=== PATIENT | female | born 1990 | race Caucasian/White ===

== ENCOUNTER 2019-12-04 18:25 | Inpatient (IN) | payer BC, OTHER ==
[2019-12-04] MEDS: DEXTROSE 5%-LACTATED RINGERS 1,000 ML IV SCH (20:30)
[2019-12-04 20:33] LABS: BASO % 0.2 % (0-2.0); EOS % 0.3 % (0-4.5); HEMATOCRIT 35.1 % (32.4-45.2); HEMOGLOBIN 11.6 GM/dL (10.7-15.3); LYMPH % 17.3 % (8-40); MCHC 33.2 g/dl (32.0-36.0); MEAN CELL VOLUME 93.5 fl (80-96); MEAN PLT VOLUME 8.9 fl (7.5-11.1); MONO % 6.3 % (3.8-10.2); NEUT % 75.9 % (42.8-82.8); PLATELET COUNT 239 K/MM3 (134-434); RBC 3.76 M/mm3 (3.60-5.2); RDW 13.2 % (11.6-15.6); WHITE BLOOD COUNT 12.8 K/mm3 (4.0-10.0)
[2019-12-04 20:42] LABS: INR 0.93 (0.83-1.09)
[2019-12-04 20:44] LABS: ACTIVATED PTT 25.2 SECONDS (25.2-36.5)
[2019-12-04 20:59] LABS: BLOOD UREA NITROGEN 11.6 mg/dL (7-18); CALCIUM 9.5 mg/dL (8.5-10.1); CREATININE 0.6 mg/dL (0.55-1.3)
[2019-12-04] MEDS ORDERED: DINOPROSTONE 10 MG VAGINAL SUPPOSITORY VG ONE (21:00)
[2019-12-04 21:41] VITALS: BMI 30.9
--- NOTE | 2019-12-04 22:45 | HP ---
Past Medical History - Primary Care Physician PCP:: Surendra Sorenson - Admission Chief Complaint: 29yo P0 with at EGA 40w1d admitted for labor indx due to post term . History of Present Illness: Post term Vaginal GBS (+) h/o PCOS History Source: Patient, Medical Record Limitations to Obtaining History: No Limitations - Past Medical History S[employer]IOR [employer] APPLICATIONS DEVELOPER: No: Alzheimer's, CVA, Dementia, Migraine, Multiple Sclerosis, Peripheral Neuropathy, Parkinson's, Seizure, Syncope, TIA, Vertigo, Other Cardiovascular: No: AFIB, Aneurysm, Aortic Insufficiency, Aortic Stenosis, CAD, CHF, Deep Vein Thrombosis, HTN, Hyperlipdemia, MO, Mitral Insufficiency, Mitral Stenosis, Murmur, Pulmonary Hypertension, Other Pulmonary: No: Asthma, Bronchitis, Cancer, COPD, O2 Dependent, Pneumonia, Previously Intubated, Pulmonary Embolus, Pulmonary Fibrosis, Sleep Apnea, Other Gastrointestinal: No: Ascites, Cancer, Constipation, Crohn's Disease, Diverticulitis, Diverticulosis, Esophageal Varices, Gastritis, GERD, GI Bleed, Hemorrhoids, Hiatal Hernia, Inflamatory Bowel Disease, Irritable Bowel Disease, Pancreatitis, Peptic Ulcer Disease, Ulcerative Colitis, Other Hepatobiliary: No: Cirrhosis, Cholelithiasis, Cholecystitis, Choledocholithiasis, Hepatitis A, Hepatitis B, Hepatitis C, Other Renal/: No: Renal Failure, Renal Inusuff, BPH, Cancer, Hematuria, Hemodialysis, Neurogenic Bladder, Renal Calculi, UTI, Other Reproductive: Yes: Polycystic Ovary Syndrome ...: 1 ...Para: 0 ...Term: 0 ...: 0 ...Spon : 0 ...Induced : 0 ...Living Children: 0 ...Multiple Gestation: 0 ...LMP: 02/22/19 ... Weeks Gestation by Dates: 40.4 ...EDC by Dates: 11/30/19 ...EDC by Sono: 12/03/19 Heme/Onc: No: Anemia, B12 Deficiency, Bleeding Disorder, Cancer, Current Chemotherapy, Current Radiation Therapy, Hemochromatosis, Hypercoaguable State, Myeloproliferative Synd, Sickle Cell Disease, Sickle Cell Trait, Thrombocytopenia, Other Infectious Disease: No: AIDS, C-Diff, Herpes Zoster, HIV, MRSA, STD's, Tuberculosis, VREF, Other Psych: No: Addictions, Anxiety, Bipolar, Depression, Panic, Psychosis, Schizophrenia, Other Musculoskeletal: No: Bursitis, Chronic low back pain, Hemiparesis, Hemiplegia, O steoarthritis, Paraplegia, Other Rheumatology: No: Fibromyalgia, Gout, Lupus, Rheumatoid Arthritis, Sarcoidosis, Vasculitis, Other ENT: No: Allergic Rhinitis, Sinusitis, Other Endocrine: No: Ankit's Disease, [place]'s Disease, Diabetes Insipidus, Diabetes Mellitus, Hyperparathyroidism, Hyperthyroidism, Hypothyroidism, Ost eopenia, SIADH, Other Dermatology: No: Basal Cell, Cellulitis, Eczema, Melanoma, Psoriasis, Squamous Cell, Other - Past Surgical History Past Surgical History: Yes: Appendectomy Hx Myomectomy: No Hx Transabdominal Cerclage: No - Smoking History Smoking history: Never smoked Have you smoked in the past 12 months: No - Alcohol/Substance Use Hx Alcohol Use: No History of Substance Use: reports: None - Social History Usual Living Arrangement: Yes: With Spouse Do you think of yourself as: Straight/Heterosexual ADL: Independent Occupation: Teacher History of Recent Travel: No Home Medications - Allergies Allergies/Adverse Reactions: Allergies Allergy/AdvReac Type Severity Reaction Status Date / Time No Known Allergies Allergy Verified 12/04/19 19:54 - Home Medications Home Medications: Ambulatory Orders Vitamins (Sjr) - 1 tab PO DAILY 12/04/19 Family Medical History Family Hx Cardiac Disorders: Mother (HTN) Review of Systems - Review of Systems Constitutional: reports: No Symptoms Eyes: reports: No Symptoms HENT: reports: No Symptoms Neck: reports: No Symptoms Cardiovascular: reports: No Symptoms Respiratory: reports: No Symptoms Gastrointestinal: reports: No Symptoms Genitourinary: reports: No Symptoms Breasts: reports: No Symptoms Reported Musculoskeletal: reports: No Symptoms Integumentary: reports: No Symptoms Neurological: reports: No Symptoms Endocrine: reports: No Symptoms Hematology/Lymphatic: reports: No Symptoms Psychiatric: reports: No Symptoms Pain Intensity: 0 Physical Exam - Maternity Vital Signs: Vital Signs Temperature 98.2 F 12/04/19 22:00 Pulse Rate 70 12/04/19 22:00 Respiratory Rate 18 12/04/19 22:00 Blood Pressure 130/68 12/04/19 22:00 O2 Sat by Pulse Oximetry (%) Constitutional: Yes: Well Nourished, No Distress, Calm Eyes: Yes: WNL, Conjunctiva Clear, EOM Intact HENT: Yes: WNL, Atraumatic, Normocephalic Neck: Yes: WNL, Supple, Trachea Midline Cardiovascular: Yes: WNL, Regular Rate and Rhythm Lungs: Clear to auscultation, Normal air movement - Abdominal Exam/OB Fundal Height: 41 Number of Fetuses: Single Presentation: Vertex Contractions: Yes Regularity: Irritability Intensity: Unaware Monitor Mode: External Heart Rate (range): 140 Heart Rate Location: Midline Category: I Accelerations: Non-Uniform Decelerations: None - Vaginal Exam/OB Vaginal Bleeding: No Speculum Exam: No Dilatation (cm): 2 Effacement (%): 50 Amniotic Membrane Status: Intact Presentation: Vertex/Position Station: -3 - Physical Exam Musculoskeletal: Yes: WNL Extremities: Yes: WNL Edema: No Integumentary: Yes: WNL Deep Tendon Reflex Grade: Normal +2 ...Motor Strength: WNL Psychiatric: Yes: WNL, Alert, Oriented - Labs Lab Results: CBC, BMP 12/04/19 20:10 12/04/19 20:10 Hemorrhage Risk Assessment - Risk Factors Medium Risk Factors: Yes: None High Risk Factors: Yes: None Risk Score: 1 Risk Level: Medium Risk Imaging - Results Ultrasound: Report Reviewed Assessment/Plan 29yo P0 with at EGA 40w1d admitted for labor indx due to post term . Pt is not in labor. Fetus with Category I tracing. Adequate gynecoid pelvimetry on exam. We had long discussion re: risks, benefits, and alternatives of labor induction. I explained the options of expectant management awaiting spontaneous labor, induction of labor, and elective section. The risks of uterine tachysystole, distress, uterine rupture, need for emergency C/S, hemorrhage, infection, scarring, etc. were discussed. We also discussed the risks of meconium aspiration, shoulder dystocia, and anesthesia options. The pt requested to proceed with induction. We discussed the alternative methods of induction with Cervidil, Cytotec, Folley ballon, and pitocin. The pt prefers Cervidil followed by pitocin, if needed.
[2019-12-05] MEDS: DEXTROSE 5%-LACTATED RINGERS 1,000 ML IV SCH ×2 (01:30→09:25)
[2019-12-05] MEDS ORDERED: OXYTOCIN 30 UNITS in 0.9% NS 30 UNIT/500 ML INFUS.BAG IVPB ONE (08:08)
[2019-12-05] MEDS ORDERED: AMPICILLIN SODIUM 2 GM VIAL ONE (08:44)
[2019-12-05] MEDS ORDERED: SODIUM CHLORIDE 100 ML IVPB ONE ×2 (08:44→12:15)
--- NOTE | 2019-12-05 08:50 | PN ---
Ante-Partal Exam - Subjective Subjective: Pt is c/o leaking fluid. SROM at 8:35am with clear fluid. Vital Signs: Vital Signs Temperature 98.9 F 12/05/19 06:00 Pulse Rate 87 12/05/19 07:00 Respiratory Rate 20 12/05/19 07:00 Blood Pressure 125/75 12/05/19 07:00 O2 Sat by Pulse Oximetry (%) Bleeding: No Headache: No Visual changes: No Right upper quadrant pain: No Pain (scale 1-10): 4 - Contractions Contractions: Yes Regularity: Irregular Intensity: Mild Monitor Mode: External - Exam during Labor Heart Rate: 135 Variability: Moderate Heart Rate Location: Midline Category: I Monitor Accelerations: Present Monitor Decelerations: None Exam: Vaginal Dilatation (cm): 2 Effacement (%): 70 Amniotic Membrane Status: Leaking Nitrazine Test: Positive Amniotic Fluid: Clear Presentation: Vertex Station: -3 Remarks: Gynecoid pelvimetry - Intrapartum Hemorrhage Risk Medium Risk Factors: None High Risk Factors: None Risk Score: 0 Risk Level: Low Risk - Assessment/Plan Assessment/Plan: Pt is in latent labor. Contractions are irregular. Fetus with Category I tracing. Plan to augment contractions with pitocin. Plan of care was d/w pt.
[2019-12-05] MEDS ORDERED: AMPICILLIN - 2 GM in SODIUM CHLORIDE 100 ML IVPB ONE (08:51)
[2019-12-05] MEDS ORDERED: OXYTOCIN 30 UNITS in 0.9% NS 30 UNIT/500 ML INFUS.BAG IVPB SCH (09:00)
[2019-12-05] MEDS ORDERED: BUTORPHANOL TARTRATE 1 MG/ML VIAL IVPB ONE (09:05)
[2019-12-05] MEDS ORDERED: BUTORPHANOL TARTRATE 2 MG/ML VIAL ONE (09:05)
[2019-12-05] MEDS ORDERED: PROMETHAZINE HCL 25 MG/1 ML VIAL IVPB ONE (09:05)
[2019-12-05] MEDS ORDERED: PROMETHAZINE HCL 25 MG/1 ML VIAL ONE (09:05)
[2019-12-05] MEDS: ELECTROLYTE-148 SOLN 1,000 ML IV SCH ×2 (11:05→12:19)
[2019-12-05] MEDS ORDERED: FENTANYL/BUPIVACAINE/NS/PF - PCEA - 50 ML DISP.SYRIN EP ONE (11:07)
[2019-12-05] MEDS ORDERED: PCA PUMP NR ONE (11:07)
[2019-12-05] MEDS ORDERED: FENTANYL/BUPIVACAINE/NS/PF - PCEA - 50 ML DISP.SYRIN EP SCH (11:15)
[2019-12-05] MEDS ORDERED: NALOXONE HCL 0.4 MG/ML VIAL IVPUSH PRN (11:15)
[2019-12-05] MEDS ORDERED: BUPIVACAINE HCL/PF 0.25% (2.5MG/ML) 10 ML VIAL ONE (11:18)
[2019-12-05] MEDS ORDERED: AMPICILLIN SODIUM 1 GM VIAL ONE (12:15)
[2019-12-05] MEDS: AMPICILLIN - 1 GM in SODIUM CHLORIDE 100 ML IVPB SCH ×2 (12:38→23:13)
--- NOTE | 2019-12-05 14:21 | PN ---
Ante-Partal Exam - Subjective Subjective: No complaints, s/p epidural anesthesia Vital Signs: Vital Signs Temperature 97.9 F 12/05/19 14:00 Pulse Rate 69 12/05/19 14:00 Respiratory Rate 20 12/05/19 14:00 Blood Pressure 116/80 12/05/19 14:00 O2 Sat by Pulse Oximetry (%) 100 12/05/19 14:00 Bleeding: No Headache: No Visual changes: No Right upper quadrant pain: No Pain (scale 1-10): 0 - Contractions Contractions: Yes Regularity: Regular Intensity: Mod/Strong Monitor Mode: External - Exam during Labor Heart Rate: 135 Variability: Moderate Heart Rate Location: Midline Category: I Monitor Accelerations: Present Monitor Decelerations: Early Exam: Vaginal Dilatation (cm): 8 Effacement (%): 90 Amniotic Membrane Status: Leaking Amniotic Fluid: Clear Presentation: Vertex Station: 0 - Intrapartum Hemorrhage Risk Medium Risk Factors: None High Risk Factors: None Risk Score: 0 Risk Level: Low Risk - Assessment/Plan Assessment/Plan: Progressed in active labor. Fetus with Category I tracing and does not need intervention Plan to monitor labor. Anticipate .
[2019-12-05] MEDS ORDERED: OXYTOCIN 20 UNITS in 0.9% NS 20 UNIT/1,000 ML INFUS.BAG IV ONE (16:17)
[2019-12-05] MEDS ORDERED: LIDOCAINE HCL 1% PRESERVATIVE FREE - 30ML VIAL ONE (16:48)
[2019-12-05] MEDS ORDERED: BISACODYL 10 MG SUPP.RECT RC PRN (17:15)
[2019-12-05] MEDS ORDERED: BENZOCAINE 28 GM HEMORRHOIDAL OINTMENT TP PRN (17:15)
[2019-12-05] MEDS ORDERED: BENZOCAINE 20% 57 GM BOTTLE TP PRN (17:15)
[2019-12-05] MEDS ORDERED: OXYTOCIN 20 UNITS in 0.9% NS 20 UNIT/1,000 ML INFUS.BAG IV SCH ×2 (17:15→18:30)
[2019-12-05] MEDS ORDERED: WITCH HAZEL 50% (TUCKS) 40 PAD/JAR PAD TP PRN (17:15)
[2019-12-05] MEDS ORDERED: METHYLERGONOVINE MALEATE 0.2 MG/1 ML AMP IM PRN (17:15)
[2019-12-05] MEDS ORDERED: IBUPROFEN 600 MG TABLET (FP) PO ONE (17:24)
[2019-12-05] MEDS: IBUPROFEN 600 MG TABLET (FP) PO PRN (17:30)
--- NOTE | 2019-12-06 00:05 | PN ---
Post Progress Note - Subjective Subjective: Patient without acute complaints. Reports tolerating oral intake without nausea or vomiting. Ambulating without dizziness. Denies fevers or chills. Pain well controlled with oral pain medication. without difficulty. Passing flatus. Post Day: 1 Type of Delivery: Vital Signs: Vital Signs Temperature 98.6 F 12/05/19 19:50 Pulse Rate 76 12/05/19 19:50 Respiratory Rate 18 12/05/19 19:50 Blood Pressure 130/71 12/05/19 19:50 O2 Sat by Pulse Oximetry (%) 99 12/05/19 18:15 Breast Exam: Yes: Soft Uterus: Yes: Fundus Firm Abdomen/GI: Yes: Abdomen soft, Passing flatus, Tolerating PO. No: Abdominal Distention, Tender Lochia: Yes: Rubra Lochia, amount: Moderate Extremities: Yes: Calves non-tender. No: Edema Perineum: Yes: Laceration Activity: Ambulating - Labs Labs: CBC WBC 12.8 K/mm3 (4.0-10.0) H 12/04/19 20:10 RBC 3.76 M/mm3 (3.60-5.2) 12/04/19 20:10 Hgb 11.6 GM/dL (10.7-15.3) 12/04/19 20:10 Hct 35.1 % (32.4-45.2) 12/04/19 20:10 MCV 93.5 fl (80-96) 12/04/19 20:10 MCH 31.0 pg (25.7-33.7) 12/04/19 20:10 MCHC 33.2 g/dl (32.0-36.0) 12/04/19 20:10 RDW 13.2 % (11.6-15.6) 12/04/19 20:10 Plt Count 239 K/MM3 (134-434) 12/04/19 20:10 MPV 8.9 fl (7.5-11.1) 12/04/19 20:10 Absolute Neuts (auto) 9.7 K/mm3 (1.5-8.0) H 12/04/19 20:10 Neutrophils % 75.9 % (42.8-82.8) 12/04/19 20:10 Lymphocytes % 17.3 % (8-40) 12/04/19 20:10 Monocytes % 6.3 % (3.8-10.2) 12/04/19 20:10 Eosinophils % 0.3 % (0-4.5) 12/04/19 20:10 Basophils % 0.2 % (0-2.0) 12/04/19 20:10 Nucleated RBC % 0 % (0-0) 12/04/19 20:10 Assessment/Plan 29 yo PPD # 1 s/p , afebrile, vital signs stable, doing well 1. Continue routine care. 2. AM CBC with mild anemia 3. Rh positive status, no rhogam indicated. 4. Encourage ambulation 5. Continue oral pain medication 6. Anticipate discharge home day #2
[2019-12-06] MEDS: ACETAMINOPHEN 325 MG TABLET (FP) PO PRN ×2 (05:46→20:13)
[2019-12-06] MEDS: IBUPROFEN 600 MG TABLET (FP) PO PRN ×2 (05:47→20:14)
[2019-12-06 08:39] LABS: BASO % 0.2 % (0-2.0); EOS % 0.3 % (0-4.5); HEMATOCRIT 29.8 % (32.4-45.2); HEMOGLOBIN 9.9 GM/dL (10.7-15.3); LYMPH % 12.3 % (8-40); MCH 31.2 pg (25.7-33.7); MCHC 33.2 g/dl (32.0-36.0); MEAN CELL VOLUME 93.8 fl (80-96); MEAN PLT VOLUME 8.6 fl (7.5-11.1); MONO % 6.6 % (3.8-10.2); NEUT % 80.6 % (42.8-82.8); PLATELET COUNT 210 K/MM3 (134-434); RBC 3.17 M/mm3 (3.60-5.2); RDW 12.9 % (11.6-15.6); WHITE BLOOD COUNT 15.1 K/mm3 (4.0-10.0)
[2019-12-06] MEDS: PRENATAL VITAMINS W/ FOLIC ACID TABLET (FP) PO SCH (11:09)
[2019-12-06] MEDS ORDERED: SENNOSIDES/DOCUSATE COMBO (SENNA PLUS) TABLET (UD) PO PRN (22:00)
--- NOTE | 2019-12-07 07:31 | DS ---
Physical Exam-CASH MANAGEMENT ASSOCIATE Vital Signs: Vital Signs Temperature 98.3 F 12/06/19 22:00 Pulse Rate 87 12/06/19 22:00 Respiratory Rate 18 12/06/19 22:00 Blood Pressure 125/74 12/06/19 22:00 O2 Sat by Pulse Oximetry (%) 99 12/05/19 18:15 Constitutional: Yes: Well Nourished, No Distress, Calm Eyes: Yes: WNL, Conjunctiva Clear, EOM Intact HENT: Yes: WNL, Atraumatic, Normocephalic Neck: Yes: WNL, Supple, Trachea Midline Cardiovascular: Yes: WNL, Regular Rate and Rhythm Respiratory: Yes: WNL, Regular, CTA Bilaterally Gastrointestinal: Yes: WNL ...Rectal Exam: Yes: WNL Renal/: Yes: WNL ....Post : Yes: Uterus firm, Uterus non-tender, Slight lochia rubra Breast(s): Yes: WNL Musculoskeletal: Yes: WNL Extremities: Yes: WNL Edema: No Integumentary: Yes: WNL Neurological: Yes: WNL, Alert, Oriented ...Motor Strength: WNL Psychiatric: Yes: WNL, Alert, Oriented Labs: CBC, BMP 12/06/19 07:49 12/04/19 20:10 Delivery - Delivery Vaginal Delivery: Spontaneous Type of Anesthesia: Local, Epidural Episiotomy/Laceration: 1st degree EBL (cc): 350 Delivery, Single - Stages of Labor Date 1st Stage Initiatied: 12/05/19 Time 1st Stage Initiated: 08:00 Date 2nd Stage Initiated: 12/05/19 Time 2nd Stage Initiated: 15:45 Date of Delivery: 12/05/19 Time of Delivery: 16:54 Time Placenta Delivered: 17:00 Placenta: Yes: Spontaneous - Condition of Infant Facilities Maintenance Technician/Score Caller Present: No Infant Gender: Male Weight: 7 lb 4 oz Total Hours ROM (Hrs/Mins): 8/25 - 1 Minute Total Score: 9 5 Minutes Total Score: 10 - Brule Feeding Plan Initial Plan: Elected not to breastfeed exclusively throughout hospitalization Discharge Summary Problems reviewed: Yes Reason For Visit: INDUCTION Procedures: Principal: Hospital Course: follow up office 4 weeks Condition: Good - Instructions Diet, Activity, Other Instructions: regular diet, no intercourse, follow up office 4 weeks, if fever, heavy vaginal bleeding, pain call MD Referrals: Surendra Sorenson MD [Staff Physician] - Disposition: HOME - Home Medications Comprehensive Discharge Medication List: Ambulatory Orders Vitamins (Sjr) - 1 tab PO DAILY 12/04/19 Ibuprofen [Motrin -] 600 mg PO QID #28 tablet 12/06/19
[2019-12-07] MEDS: PRENATAL VITAMINS W/ FOLIC ACID TABLET (FP) PO SCH (09:28)
[2019-12-07 14:06] VITALS: BP 118/80; PULSE 80; TEMP 98
== END 2019-12-07 12:10 | disposition home or self-care (01) | DRG 807 ==
LOC: JLDR 18:25 → J3W 12-05 19:47
PROVIDERS: ADMIT Obstetrics & Gynecology; ATTEND Obstetrics & Gynecology
PROC: 3E0P7VZ Introduction of Hormone into Female Reproductive, Via Natural or Artificial Opening (ICD-10-PCS; 2019-12-04)
PROC: 10E0XZZ Delivery of Products of Conception, External Approach (ICD-10-PCS; principal; 2019-12-05)
PROC: 0HQ9XZZ Repair Perineum Skin, External Approach (ICD-10-PCS; 2019-12-05)
PROC: 0W8NXZZ Division of Female Perineum, External Approach (ICD-10-PCS; 2019-12-05)
DX: O70.0 First degree perineal laceration during delivery (principal); Z37.0 Single live birth; O48.0 Post-term pregnancy; O99.013 Anemia complicating pregnancy, third trimester; Z22.330 Carrier of Group B streptococcus; Z3A.40 40 weeks gestation of pregnancy
CPT/HCPCS: 36415; 59409; 80048; 85025; 85610; 85730; 86780; 86850; 86900; 86901; 87389; U0003

== ENCOUNTER 2022-07-03 10:40 | Inpatient (IN) | payer BC, OTHER ==
[2022-07-03] MEDS ORDERED: ELECTROLYTE-148 SOLN 1,000 ML IV SCH (11:30)
[2022-07-03] MEDS ORDERED: FENTANYL CITRATE/PF 50 MCG/ML VIAL ONE ×2 (11:50→16:48)
[2022-07-03] MEDS ORDERED: BUPIVACAINE HCL/PF 0.25% (2.5MG/ML) 10 ML VIAL ONE ×2 (11:50→16:48)
[2022-07-03] MEDS ORDERED: FENTANYL/BUPIVACAINE/NS/PF - PCEA - 50 ML DISP.SYRIN EP ONE ×2 (11:57→16:44)
[2022-07-03] MEDS ORDERED: AMPICILLIN - 2 GM in SODIUM CHLORIDE 100 ML IVPB ONE (12:00)
[2022-07-03] MEDS ORDERED: AMPICILLIN SODIUM 2 GM VIAL ONE (12:34)
[2022-07-03 12:40] LABS: BASO % 0.1 % (0-2.0); EOS % 0.2 % (0-4.5); HEMATOCRIT 35.7 % (32.4-45.2); HEMOGLOBIN 11.9 GM/dL (10.7-15.3); MCH 30.7 pg (25.7-33.7); MCHC 33.2 g/dl (32.0-36.0); MEAN CELL VOLUME 92.3 fl (80-96); MEAN PLT VOLUME 8.9 fl (7.5-11.1); MONO % 4.7 % (3.8-10.2); PLATELET COUNT 253 10^3/uL (134-434); RBC 3.87 M/mm3 (3.60-5.2)
[2022-07-03 12:41] LABS: INR 1.01 (0.83-1.09); PROTHROMBIN TIME (PATIENT) 11.7 SEC (9.7-13.0)
[2022-07-03 12:44] LABS: ACTIVATED PTT 27.6 SECONDS (25.2-36.5)
[2022-07-03 13:01] LABS: CALCIUM 8.6 mg/dL (8.5-10.1)
[2022-07-03 13:02] LABS: BLOOD UREA NITROGEN 9.9 mg/dL (7-18)
[2022-07-03 13:06] LABS: CREATININE 0.6 mg/dL (0.55-1.3)
[2022-07-03] MEDS ORDERED: NALOXONE HCL 0.4 MG/ML VIAL IVPUSH PRN (13:20)
[2022-07-03] MEDS ORDERED: FENTANYL/BUPIVACAINE/NS/PF - PCEA - 50 ML DISP.SYRIN EP SCH (13:30)
[2022-07-03 14:35] VITALS: BMI 33.5
[2022-07-03] MEDS ORDERED: AMPICILLIN - 1 GM in SODIUM CHLORIDE 100 ML IVPB SCH (15:15)
[2022-07-03] MEDS ORDERED: OXYTOCIN 30 UNITS in 0.9% NS 30 UNIT/500 ML INFUS.BAG IVPB ONE (15:49)
[2022-07-03] MEDS ORDERED: AMPICILLIN SODIUM 1 GM VIAL ONE (15:49)
[2022-07-03] MEDS ORDERED: OXYTOCIN 20 UNITS in 0.9% NS 20 UNIT/1,000 ML INFUS.BAG IV ONE (17:43)
[2022-07-03] MEDS ORDERED: LIDOCAINE HCL 1% PRESERVATIVE FREE - 30ML VIAL ONE (17:44)
[2022-07-03] MEDS ORDERED: OXYTOCIN 30 UNITS in 0.9% NS 30 UNIT/500 ML INFUS.BAG IVPB SCH (18:00)
[2022-07-03] MEDS ORDERED: BENZOCAINE 20% 57 GM BOTTLE TP PRN (18:24)
[2022-07-03] MEDS ORDERED: oxyCODONE HCL 5 MG TABLET PO PRN (18:24)
[2022-07-03] MEDS ORDERED: ACETAMINOPHEN 325 MG TABLET (FP) PO PRN (18:24)
[2022-07-03] MEDS ORDERED: METHYLERGONOVINE MALEATE 0.2 MG/1 ML AMP IM PRN (18:24)
[2022-07-03] MEDS ORDERED: WITCH HAZEL 50% (TUCKS) 40 PAD/JAR PAD TP PRN (18:24)
[2022-07-03] MEDS ORDERED: BENZOCAINE 28 GM HEMORRHOIDAL OINTMENT TP PRN (18:24)
[2022-07-03] MEDS ORDERED: BISACODYL 10 MG SUPP.RECT RC PRN (18:24)
[2022-07-03] MEDS ORDERED: OXYTOCIN 20 UNITS in 0.9% NS 20 UNIT/1,000 ML INFUS.BAG IV SCH (18:30)
[2022-07-03 19:09] LABS: CORD BASE EXCESS -5.5 mmol/L (0-2); CORD HCO3 19.4 mmHg (20-29); CORD PCO2 36.5 mmHg (30-78); CORD pH 7.344 (7.14-7.44)
[2022-07-03 19:09] LABS: CORD BASE EXCESS -5.8 mmol/L (0-2); CORD HCO3 21.3 mmHg (20-29); CORD PCO2 47.5 mmHg (30-78); CORD pH 7.269 (7.14-7.44)
[2022-07-03] MEDS: IBUPROFEN 600 MG TABLET (FP) PO PRN (20:47)
[2022-07-04] MEDS: IBUPROFEN 600 MG TABLET (FP) PO PRN ×2 (06:10→17:43)
[2022-07-04 08:34] LABS: BASO % 0.2 % (0-2.0); EOS % 0.5 % (0-4.5); HEMATOCRIT 30.7 % (32.4-45.2); HEMOGLOBIN 10.5 GM/dL (10.7-15.3); LYMPH % 15.3 % (8-40); MCH 31.2 pg (25.7-33.7); MCHC 34.2 g/dl (32.0-36.0); MEAN CELL VOLUME 91.3 fl (80-96); MEAN PLT VOLUME 8.8 fl (7.5-11.1); PLATELET COUNT 231 10^3/uL (134-434); RBC 3.36 M/mm3 (3.60-5.2); RDW 13.9 % (11.6-15.6); WHITE BLOOD COUNT 12.3 K/mm3 (4.0-10.0)
[2022-07-04] MEDS ORDERED: SENNOSIDES/DOCUSATE COMBO (SENNA PLUS) TABLET (UD) PO PRN (22:00)
[2022-07-05 12:24] VITALS: BP 126/71; PULSE 82; RESP 16; TEMP 97.6
== END 2022-07-05 12:40 | disposition home or self-care (01) | DRG 807 ==
LOC: JDEL 10:40 → JLDR 10:50 → J3W 20:24
PROVIDERS: ADMIT Obstetrics & Gynecology; ATTEND Obstetrics & Gynecology
PROC: 10E0XZZ Delivery of Products of Conception, External Approach (ICD-10-PCS; principal; 2022-07-03)
DX: O48.0 Post-term pregnancy (principal); Z37.0 Single live birth; O99.824 Streptococcus B carrier state complicating childbirth; Z3A.40 40 weeks gestation of pregnancy
CPT/HCPCS: 36415; 36600; 59409; 80048; 82803; 85025; 85610; 85730; 86780; 86850; 86900; 86901; C9803-CS; U0003; U0005